=== PATIENT | male | born 1985 | race American Indian/Alaskan Native ===

== ENCOUNTER 2022-06-25 09:37 | Emergency (ER) | payer SELFPAY ==
[2022-06-25 11:11] LABS: Hematocrit 42.2 % (35.5-45.6); Mean Corpuscular HGB Conc 33 % (32-34); Mean Corpuscular Volume 80 fl (84-94); Platelet Count 207 K/mm3 (140-440); Red Cell Distribution Width 14.4 % (13.2-15.2)
[2022-06-25 11:35] LABS: Alanine Aminotransferase 57 units/L (7-56); Albumin 4.6 g/dL (3.9-5); BUN/Creatinine Ratio 18; Blood Urea Nitrogen 14 mg/dL (9-20); Calcium 10.2 mg/dL (8.4-10.2); Hemolysis Index 2
[2022-06-25] MEDS ORDERED: ACETAMINOPHEN 500 MG TAB PO ONE (12:16)
[2022-06-25] MEDS ORDERED: SODIUM CHLORIDE 0.9% 1000 ML 1,000 ML IV ONE ×3 (12:16→19:02)
[2022-06-25] MEDS ORDERED: ONDANSETRON 4 MG/2 ML INJ IV ONE (12:16)
[2022-06-25] MEDS ORDERED: KETOROLAC 30 MG/1 ML INJ IV ONE (12:16)
[2022-06-25] MEDS ORDERED: PROPRANOLOL 1 MG/1 ML INJ IV ONE (12:21)
--- NOTE | 2022-06-25 12:40 | Emergency Department Report ---
HPI - General Chief Complaint: Nausea/Vomiting/Diarrhea PUI?: Yes Time Seen by Provider: 06/25/22 12:02 - HPI HPI: 36-year-old male with history of self-reported Graves' disease, noncompliant with medications, presents with complaints of fatigue, body aches, abdominal pain, vomiting, diarrhea lower back pain, fevers and chills, and "feeling like my thyroid storm is acting up." Patient reports the symptoms began acutely yesterday. He denies any known sick contacts or travel history. No chest pain shortness of breath difficulty breathing or palpitations. Denies any cough or URI symptoms. Abdominal pain currently is not present but he reports cramping in his lower back. No tingling or numbness in his arms or legs, no fecal or urinary incontinence or retention, no saddle paresthesias. No IV drug abuse. He smokes marijuana intermittently but denies any other illegal drug use. No alcohol abuse except "socially" per his girlfriend. His pain is generalized and is currently 8 out of 10 ED Past Medical Hx - Past Medical History Previous Medical History?: Yes Additional medical history: hyperthyroid, Graves disease - Surgical History Past Surgical History?: No - Social History Substance Use Type: Marijuana - Medications Home Medications: Home Medications Medication Instructions Recorded Confirmed Last Taken Type atenoloL [Tenormin] 25 mg PO DAILY #30 tab 06/25/22 Unknown Rx methIMAzole [Methimazole] 15 mg PO BID #126 06/25/22 Unknown Rx ED Review of Systems ROS: Stated complaint: STOMACH VIRUS Other details as noted in HPI Comment: All other systems reviewed and negative Constitutional: chills, diaphoresis, fever, malaise, weakness Eyes: denies: eye pain, eye discharge, vision change ENT: denies: ear pain, throat pain, dental pain, hearing loss, epistaxis Respiratory: denies: see HPI, cough, orthopnea, shortness of breath, SOB with exertion, SOB at rest, stridor, wheezing Cardiovascular: palpitations. denies: chest pain, dyspnea on exertion, orthopnea, edema, syncope, paroxysmal nocturnal dyspnea, other Endocrine: see HPI, excessive sweating, intolerance to heat. denies: flushing, increased hunger, increased thirst, increased urine, unexplained weight gain, unexplained weight loss Gastrointestinal: abdominal pain, nausea, vomiting, diarrhea. denies: constipation, hematemesis, melena, hematochezia, other Genitourinary: denies: urgency, dysuria, frequency, hematuria, discharge, testicular pain, testicular mass Musculoskeletal: denies: back pain, joint swelling, arthralgia, myalgia, other Skin: denies: rash, lesions, change in color, change in hair/nails, pruritus Neurological: denies: headache, weakness, numbness, paresthesias, confusion, abnormal gait, vertigo Psychiatric: denies: as per HPI, anxiety, depression, auditory hallucinations, visual hallucinations, homicidal thoughts, suicidal thoughts Hematological/Lymphatic: denies: easy bleeding, easy bruising, swollen glands Physical Exam - Physical Exam Vital Signs: Vital Signs 06/25/22 10:02 Temperature 99.6 F Pulse Rate 109 H Respiratory 20 Rate Blood Pressure 175/103 [Left] O2 Sat by Pulse 100 Oximetry General: Gen: pt is well appearing, no acute distress HEENT: Normocephalic atraumatic pupils equally round and reactive to light extraocular muscles intact sclera anicteric Neck: Full range of motion, no midline spinal tenderness palpation, no JVD, no carotid bruits, no nuchal rigidity CVS: S1-S2 tachycardic; lar rate and rhythm with no gallops rubs or murmurs, chest wall nontender Pulmonary: Clear to auscultation bilaterally, no wheezes rales or rhonchi Abdomen: Soft nondistended nontender no guarding or rebound tenderness, no palpable deformities or step-offs, normal active bowel sounds, no hepatosplenomegaly, no pulsatile masses : Deferred Extremities: No cyanosis no clubbing no edema, intact distal peripheral pulses, Integumentary: Skin normal, no petechia no purpura no abscess no lacerations no evidence of trauma no evidence of infection Neuro: Patient is awake alert and oriented to person place time situation, mentating well, cranial nerves II through XII intact, no focal neurodeficits, sensation grossly tact Psych: Calm cooperative, mood affect normal ED Course Vital Signs 06/25/22 10:02 Temperature 99.6 F Pulse Rate 109 H Respiratory 20 Rate Blood Pressure 175/103 [Left] O2 Sat by Pulse 100 Oximetry - Reevaluation(s) Reevaluation #1: 06/25/22 12:54 called to room by transportation engineering technician; pt is refusing to wear mask to go to ct; pt advised by me multiple times to wear a mask, as this is the policy of the radiology dept and we cannot confirm at this time if the pt is covid neg Reevaluation #2: 06/25/22 15:21 Patient reassessed, he is well-appearing, observed eating ice chips, states his back pain and body aches have completely resolved, Reevaluation #3: 06/25/22 17:58 Patient reassessed. He is comfortable and well-appearing. He is requesting a blanket. Patient denies any new or evolving symptoms. We will continue to monitor. Reevaluation #4: 06/25/22 20:19 pt awake, ambulating, request to be "hooked back up to my IV," pt observed to be standing outside of his room; Pt advised by staff to return to his room, as he is covid positive; patient is well-appearing, moving all extremities, no acute distress, nontoxic-appearing - Consultations Consultation #1: 06/25/22 1538: call made to [facility]. Request made by me to speak to the flexographic press set up operator live ammunition inspector. 1553 : Returned call received from Dr. Jasmyn Torres on-call flexographic press set up operator at [facility]. Case reviewed with her. She Pattieick recommends the patient be admitted inpatient, for at least 24 hours observation. She advises the patient be given methimazole 20 mg by mouth every 8 hours. She also advises that the patient receive hospitalist Hydrocortisone 50 mg by mouth every 8 hours intravenously. It is difficult to ascertain what is causing the patient's symptoms but it likely may be a combination of thyrotoxicosis as well as an active COVID infection, with the latter likely being the trigger for the thyrotoxicosis. 1544: Case reviewed with admitting hospitalist here, Dr. Hood. He declines to accept the patient for admission to the hospitalist service. The pt will need endocrinology to provide direct consultation and evaluation of the pt, and this service is not available at [facility]. 1546: Call made to [facility]. Return call pending at the time of this dictation 16:18 Return call received from [facility] admitting hospitalist, Dr. Franco. He verbalizes to have the patient accepted for admission to [facility], but states that it is unclear when the patient will receive a bed and subsequently be able to be transferred over. Advises continued attempts to be made to have the patient transferred elsewhere. The patient and his significant other were provided updates concerning the delay in definitive management and disposition, as well as the difficulties providers had in having him successfully transferred for admission. 06/25/22 18:27 Per Vocational ExaminerHumaira: SHe has called multiple other facilities, and they do not have any ability to accept the pt for transfer ([facility], [facility], and [facility]) Consultation #2: 06/25/22 20:22 Return call made to , to provide update pt's disposition (pt is awaiting bed availability to [facility] before being transferred). She advises that continued management: 1. Methimazole 20 mg by mouth every 8 hours, 2. Propanolol, IV or p.o., titrate to heart rate between 60 to 80 bpm hydrocortisone 50 mg IV every 8 hours 3. Hydrocortisone 50 mg intravenously every 8 hours If the pt leaves AMA or is discharged to home, he should be discharged on: 1. atenolol 25mg PO daily vs. bid 2. methimazole 15mg PO bid Pt to be advised, if he leaves, to follow up with an flexographic press set up operator, [facility] ED Medical Decision Making - Lab Data Result diagrams: 06/25/22 10:46 06/25/22 10:46 - EKG Data -: EKG Interpreted by Co EKG shows normal: sinus rhythm Rate: tachycardia - EKG Data When compared to previous EKG there are: no significant change - Radiology Data Radiology results: report reviewed - Medical Decision Making 36yo M p/w thyrotoxicosis and covid 19 infection. PT underwent treatment here. Pt was accepted for admission to [facility] but no available beds were present at the time of acceptance. Multiple attempts were made to have the patient accepted for admission at other hospitals. However patient was unable to be transferred secondary to lack of bed availability the pt was informed of this and verbalized understanding. The pt per JANIE Pina, subsequently signed out AMA. Critical care attestation.: If time is entered above; I have spent that time in minutes in the direct care of this critically ill patient, excluding procedure time. ED Disposition Clinical Impression: COVID-19 virus infection, Fever, Thyrotoxicosis due to Graves' disease Disposition: 07 LEFT AGAINST MEDICAL ADVICE Is pt being admited?: No Does the pt Need Aspirin: No Condition: Stable Additional Instructions: You are leaving AGAINST MEDICAL ADVICE. We strongly recommended that you await continued attempts to have you transferred to a facility that can admit you. You are at high risk for due to complications from infection and your thyr oid disease. By leaving AGAINST MEDICAL ADVICE, you are accepting sole responsibilities that you may become worse, have organ failure, and you may . You are COVID-positive. Please self quarantine per CDC guidelines. You may go to www.cdc.gov for further information concerning how long you should self quarantine. Always wear a mask when you are going out. It is extremely important that you see an flexographic press set up operator as soon as possible for reassessment and further management of your graves disease. You are being placed on methimazole and atenolol. These are being given to you as temporary prescriptions to help you for the next several weeks. Prescriptions: methIMAzole [Methimazole] 15 mg PO BID #126 atenoloL [Tenormin] 25 mg PO DAILY #30 tab Referrals: PRIMARY CARE, [Primary Care Provider] - 3-5 Days
[2022-06-25 13:05] LABS: Basophils % (Manual) 0 % (0.0-1.8); Platelet Estimate Consistent w Auto; RBC Morphology Normal; Total Cells Counted 100
--- NOTE | 2022-06-25 13:51 | XRay Report ---
CHEST 1 VIEW INDICATION: fever, weakness. COMPARISON: None FINDINGS: SUPPORT DEVICES: None. HEART: Within normal limits. LUNGS/PLEURA: No acute air space or interstitial disease. ADDITIONAL FINDINGS: None. IMPRESSION: 1. No acute findings. Signer Name: Wally Rollins MD Signed: 06/25/2022 1:47 PM Workstation Name: [id number]
--- NOTE | 2022-06-25 13:59 | Cat Scan Report ---
CT ABDOMEN AND PELVIS WITH CONTRAST HISTORY: b/l lower back/flank pain,fever OMNIPAQUE 350 100ML. COMPARISON: None. TECHNIQUE: CT images of the abdomen and pelvis were obtained following administration of intravenous contrast. All CT scans at this location are performed using CT dose reduction for ALARA by means of automated exposure control. CONTRAST: 100 ml of intravenous contrast administered. FINDINGS: Lungs/bones: Lung bases are clear. Moderate degenerative changes in both hips with bilateral CAM def ormities. Abdomen/pelvis: The liver, spleen, pancreas, adrenals, and proximal GI tract appear unremarkable. Th e gallbladder is not well-seen. Questionable patchy appearance of the kidneys with no stone disease, mass, cyst, or hydronephrosis. The urinary bladder and prostate appear unremarkable with no pelvic free fluid or acute colonic abnor mality. IMPRESSION: 1. Questionable patchy attenuation of the kidneys can be seen in the setting of pyelonephritis. Corre late with urinalysis findings. Otherwise the exam is unremarkable. Signer Name: Wally Rollins MD Signed: 06/25/2022 1:54 PM Workstation Name: [id number]
[2022-06-25] MEDS ORDERED: methIMAzole 5 MG TAB PO STA (14:25)
[2022-06-25 14:55] LABS: Bilirubin,Urine NEG (Negative); Blood,Urine NEG (Negative); Color,Urine Yellow (Yellow); Urobilinogen,Urine < 2.0 mg/dL (<2.0)
[2022-06-25 14:56] LABS: Mucus,Urine FEW /HPF; RBC,Urine < 1.0 /HPF (0.0-6.0)
[2022-06-25 15:00] LABS: Amphetamine Screen,Urine Negative; Benzodiazepines Screen,Urine Negative; Cocaine Screen,Urine Negative; Methadone Screen,Urine Negative; Opiate Screen,Urine Negative
[2022-06-25 15:25] LABS: Cannabinoid Screen,Urine Positive
[2022-06-25] MEDS ORDERED: HYDROCORTISONE SOD SUCC 100 MG/2 ML VIAL IV ONE (16:12)
[2022-06-25 18:28] VITALS: BP 131/62
[2022-06-25] MEDS ORDERED: IBUPROFEN 800 MG TAB PO ONE (20:21)
[2022-06-25] MEDS ORDERED: HYDROCORTISONE SOD SUCC 100 MG/2 ML VIAL IV SCH (21:00)
== END 2022-06-25 21:07 | disposition left against medical advice (07) ==
LOC: ED 09:37
DX: R50.9 Fever, unspecified (principal); E05.00 Thyrotoxicosis with diffuse goiter without thyrotoxic crisis or storm; Z20.822 Contact with and (suspected) exposure to COVID-19; Z79.899 Other long term (current) drug therapy
CPT/HCPCS: 36415; 71045; 74177; 80053; 80307; 81001; 82140; 83690; 84439; 84443; 84481; 85007; 85025; 87040; 96361; 96374; 96375; 99285; J1720; J1800; J1885; J2405; J7030; Q9967; U0003; 80320; G0480